=== PATIENT | male | born 1985 | race Caucasian/White ===

== ENCOUNTER 2017-09-14 07:49 | Emergency (ER) | payer SELFPAY ==
[~2017-09-14] VITALS: Ht 180.3 cm; Wt 107.9 kg
[2017-09-14] MEDS ORDERED: PREDNISONE5 M1 PO (09:57)
[2017-09-14] MEDS ORDERED: BENADRYL25 MG PO (09:57)
[2017-09-14] MEDS ORDERED: KEFLEX500 MG PO (09:57)
[2017-09-14 10:44] VITALS: BP 126/74
== END 2017-09-14 10:47 | disposition home or self-care (01) ==
LOC: EME 07:49
DX: L03.116 Cellulitis of left lower limb (principal); L25.9 Unspecified contact dermatitis, unspecified cause; S90.02XA Contusion of left ankle, initial encounter; F17.200 Nicotine dependence, unspecified, uncomplicated
CPT/HCPCS: 73590; 99281; 99284; J7512